=== PATIENT | female | born 1940 | race American Indian/Alaskan Native ===

== ENCOUNTER 2016-08-17 14:59 | Outpatient (CLI) | payer MEDICARE ==
--- NOTE | 2016-08-17 17:40 | Cat Scan Report ---
FINAL REPORT PROCEDURE: CT ABDOMEN WO CON TECHNIQUE: Computerized axial tomography of the abdomen was performed without intravenous contrast. This study is performed without intravascular contrast material and its sensitivity for abdominal and pelvic pathology, including neoplasms, inflammation, abscess, free fluid, thrombosis, arterial dissection and infarction, is reduced compared with a contrast enhanced study. HISTORY: ABDOMINAL PAIN COMPARISON: No prior studies are available for comparison. FINDINGS: Liver and spleen appear normal. There are tiny gallstones without evidence of cholecystitis or biliary ductal dilation. Pancreas appears normal. Adrenal glands and abdominal aorta are normal in size. Small vague hyperdensity is seen in the superior pole of the right kidney that may represent a poorly calcified 5 millimeter stone. Probable benign 3.5 cm cyst is seen in the superior pole of the left kidney. No stones are seen in the visualized portions of the ureters and no hydronephrosis is seen. Normal appendix is seen. Diverticula are seen in the right side of the colon without evidence of diverticulitis. Pelvis is not included on the study. IMPRESSION: Possible 5 millimeter poorly calcified stone is seen in the superior pole of the right kidney without hydronephrosis. Mild cholelithiasis is seen without evidence of cholecystitis.
== END 2016-08-17 15:00 | disposition home or self-care (01) ==
LOC: CT 14:59
PROVIDERS: ATTEND Internal Medicine Cardiovascular Disease
DX: K80.20 Calculus of gallbladder without cholecystitis without obstruction (principal); N28.1 Cyst of kidney, acquired; K57.30 Diverticulosis of large intestine without perforation or abscess without bleeding
CPT/HCPCS: 74150

== ENCOUNTER 2017-05-16 14:56 | Outpatient (CLI) | payer MEDICARE, OTHER | END 2017-05-16 14:57 | disposition home or self-care (01) | LOC: LABHHL 14:56 | PROVIDERS: ATTEND Surgery | DX: C50.911 Malignant neoplasm of unspecified site of right female breast (principal) | CPT/HCPCS: 88305; 88361 ==

== ENCOUNTER 2017-06-09 12:53 | Outpatient (CLI) | payer MEDICARE ==
--- NOTE | 2017-06-09 16:49 | Magnetic Resonance Report ---
BILATERAL BREAST MRI WITHOUT AND WITH CONTRAST: 06/09/17 12:53:00 CLINICAL: Newly diagnosed right breast cancer. COMPARISON:05/15/17 and 05/08/17 right mammograms and 10/21/16 bilateral mammogram.. TECHNIQUE: Axial 1.0-mm T1 without, axial high resolution 2.0-mm T2 and axial 1.0-mm dynamic Vibrant high-resolution postcontrast T1 fat saturation sequences on a 1.5 Jeanie magnet. The examination was performed with an 8 channel dedicated [place] breast coil. Post processing with CAD and subtraction was performed on an [employer] workstation. 20 cc of Multihance was injected without incident for the contrast portion of the exam. Consent was obtained prior to the administration of the contrast. FINDINGS: Right: Moderate background parenchymal enhancement. The known cancer is an irregular shaped mass in the lower outer quadrant 9.2 cm from the nipple and approximately 1 cm from the chest wall. The enhancing portion of the mass measures 2.2 x 1.0 x 2.4 cm and contains a biopsy clip. A nonenhancing slightly more anterior component of the mass measures approximately 1.7 x 1.0 cm. The enhancing portion of the mass demonstrates heterogeneous enhancement with mixed kinetics, 599% peak enhancement and 13% type III washout. No other mass or suspicious enhancement of the right breast. A benign upper outer intraparenchymal lymph node has central fat and measures approximately 1 cm in diameter. It has been mammographically stable over time. A biopsy proven right axillary lymph node metastasis measures 1.8 x 1.5 cm. No other abnormal lymph nodes are identified. Left: Mild background parenchymal enhancement. No mass or suspicious enhancement. No suspicious left axillary or left internal mammary lymph nodes. IMPRESSION: A known right breast cancer measuring at least 2.4 cm maximum dimension. A contiguous nonenhancing mass may be a post biopsy hematoma rather than nonenhancing tumor. Mammographic images are not helpful in better defining the size of the tumor. A single right axillary metastatic lymph node and no other suspicious lymph nodes. Negative left breast. RIGHT BI-RADS 6 -- Known Cancer LEFT BI-RADS 1 -- Negative
== END 2017-06-09 12:54 | disposition home or self-care (01) ==
LOC: SPVWC 12:53
PROVIDERS: ATTEND Surgery
DX: C77.3 Secondary and unspecified malignant neoplasm of axilla and upper limb lymph nodes (principal); C50.411 Malignant neoplasm of upper-outer quadrant of right female breast; I10 Essential (primary) hypertension; I25.10 Atherosclerotic heart disease of native coronary artery without angina pectoris; J44.9 Chronic obstructive pulmonary disease, unspecified; E11.9 Type 2 diabetes mellitus without complications; Z87.891 Personal history of nicotine dependence
CPT/HCPCS: A9577; C8908; 77059

== ENCOUNTER 2017-06-15 10:41 | Outpatient (CLI) | payer MEDICARE ==
--- NOTE | 2017-06-15 16:42 | PET Report ---
PET/CT:06/15/17 10:41:00 CLINICAL: Newly diagnosed right breast cancer. RADIOPHARMACEUTICAL: 14.97mCi F18-FDG. COMPARISON: Bilateral Breast MRI 06/09/17 TECHNIQUE- Following intravenous injection of F-18 FDG and an approximately 60 minute uptake period, CT and PET images from the mid skull to the upper thighs were acquired with the patient in the fasted state. No contrast was administered. The CT protocol used for this PET CT study is designed for attenuation correction and anatomic localization of PET abnormalities. 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 Plasma glucose at the time of this test: 104g/dl. The standardized uptake values (SUV) are normalized to patient body weight and indicate the highest activity concentration (SUV max) in a given disease site. FINDINGS: Brain--Physiologic FDG uptake in the visualized regions of the brain. Neck--Physiologic FDG uptake in mucosal structures. Chest--Physiologic FDG uptake in mediastinal blood pool and myocardium. An oval slightly irregular FDG avid right lower outer breast mass corresponds to the known cancer and measures approximately 2.9 cm maximum width issue the 3.9. Lungs--No abnormal uptake. No pulmonary nodule or mass. Pleura/pericardium--No abnormal uptake. Thoracic nodes--2 FDG avid right axillary lymph nodes. The largest measures 1.9 cm within SUV 4.3 and it correlates with the biopsy proven metastasis. An adjacent 1.0 x 0.9 cm lymph node within SUV 2.3. At least 2 smaller lymph nodes with no FDG uptake. Hepatobiliary--No abnormal uptake. Liver background SUV mean, as a reference for comparing FDG studies, is 3.3 . No liver mass. Spleen--No abnormal uptake. Pancreas--No abnormal uptake. Adrenal Glands--No abnormal uptake. Kidneys/Ureters/Bladder--No abnormal uptake. Abdominopelvic Nodes--No abnormal uptake. Bowel/Peritoneum/Mesentery--No abnormal uptake. Pelvic organs--No abnormal uptake. Bones/Soft Tissues--No abnormal uptake. No bone lesion. IMPRESSION- 1. FDG avid right breast cancer. The CT measurement of 2.9 cm correlates fairly well with an MRI maximum measurement of 2.2 cm.2. 2 FDG avid right axillary lymph nodes. The larger lymph node correlates with a known metastasis and the next largest lymph node is suspicious for a second metastasis. 3. No evidence of pulmonary, hepatic or skeletal metastasis.
== END 2017-06-15 10:42 | disposition home or self-care (01) ==
LOC: PET 10:41
PROVIDERS: ATTEND Internal Medicine Hematology & Oncology
DX: C50.411 Malignant neoplasm of upper-outer quadrant of right female breast (principal); Z79.899 Other long term (current) drug therapy
CPT/HCPCS: 78815; 82962; A9552

== ENCOUNTER 2017-07-04 11:37 | Outpatient (CLI) | payer MEDICARE ==
--- NOTE | 2017-07-04 16:20 | Mammography Report ---
RIGHT DIGITAL DIAGNOSTIC MAMMOGRAM and RIGHT BREAST ULTRASOUND: 07/04/17 11:37:00 CLINICAL: Known right breast cancer at 9 o'clock and new enlargement of the right breast with a new palpable lump at 7 o'clock 3 cm. COMPARISON:05/15/17 right mammogram and ultrasound from [facility] and MRI Breast 06/09/17 FINDINGS: The known cancer is identified far posterior at the nipple line on the MLO view and slightly lateral to the nipple on the CC view and is 7 cm from the nipple on the MLO view. The mass is only partially included on the images. No other mass is identified. No architectural distortion or suspicious calcifications. An upper outer lymph node is stable compared to prior mammograms and have benign features on the recent MRI. Ultrasound of the right breast was performed and demonstrated a solid hypoechoic irregular mass at 8:30 o'clock approximately 6 cm from the nipple correlating with the known cancer. It measures approximately 1.5 x 1.4 cm and contains a biopsy clip. However, anterior extension of the mass is identified and the known cancer together with anterior medial extension measures 2.8 x 1.4 cm. In addition, the right breast has become very firm to touch and is also tender. IMPRESSION: A known right breast cancer at 8:30 to 9 o'clock. The new palpable lump more medial to the nipple and closer to the nipple appears to represent ductal extension of the known cancer toward the nipple. No separate mass is identified. BI-RADS CATEGORY: 6--Known Cancer ACR BI-RADS MAMMOGRAPHIC CODES: 0 = Needs additional imaging evaluation; 1 = Negative; 2 = Benign; 3 = Probably benign; 4 = Suspicious; 5 = Malignant; 6 = Known biopsy-proven malignancy COMMENT: 1. Dense breast tissue, i.e., adenosis, fibrocystic changes, etc., may obscure an underlying neoplasm. 2. Approximately 10% of cancers are not detected with mammography. 3. A negative mammography report should not delay biopsy if a clinically suspicious mass is present. COMMENT: Patient follow-up letters are generated by our [employer] application.
== END 2017-07-04 11:38 | disposition home or self-care (01) ==
LOC: SPVWC 11:37
PROVIDERS: ATTEND Surgery
DX: C50.911 Malignant neoplasm of unspecified site of right female breast (principal); N62 Hypertrophy of breast

== ENCOUNTER 2017-07-05 12:20 | Observation (INO) | payer MEDICARE ==
[2017-07-05] MEDS ORDERED: NACL BACTERIOSTATIC INFILTRATI ONE (13:30)
--- NOTE | 2017-07-05 13:50 | Anesthesia Consultation ---
Anesthesia Consult and Med Hx Date of service: 07/05/17 - Airway Anesthetic Teeth Evaluation: Good ROM Head & Neck: Adequate Mental/Hyoid Distance: Adequate Mallampati Class: Class II Intubation Access Assessment: Probably Good - Pulmonary Exam CTA: Yes - Cardiac Exam Cardiac Exam: RRR - Pre-Operative Health Status ASA Pre-Surgery Classification: ASA3 Proposed Anesthetic Plan: General - Pulmonary Hx Smoking: Yes (QUIT IN 1960) Hx Asthma: No SOB: No COPD: Yes (USES O2 PERIODICALLY) Hx Pneumonia: No Hx Sleep Apnea: Yes - Cardiovascular System Hx Hypertension: Yes (EF 50% cardiac clearance on chart, DX IN THE 'S) Hx Coronary Artery Disease: (hyperlipidemia) Hx Heart Attack/AMI: No Hx Angina: No - Central Nervous System Hx Neuromuscular Disorder: Yes (arthritis) Hx Seizures: No CVA: No Hx Psychiatric Problems: No - Gastrointestinal Hx Gastroesophageal Reflux Disease: Yes - Endocrine Hx Renal Disease: No Hx Non-Insulin Dependent Diabetes: Yes (Diet controlled) Hx Thyroid Disease: No - Hematic Hx Anemia: No Hx Sickle Cell Disease: No - Other Systems Hx Alcohol Use: Yes (WINE/RARELY) Hx Substance Use: No Hx Cancer: Yes Hx Obesity: Yes
[2017-07-05] MEDS ORDERED: DILAUDID IV PRN (13:52)
[2017-07-05] MEDS ORDERED: ZOFRAN IV PRN ×2 (13:52→16:07)
[2017-07-05 13:54] LABS: Basophils % (Auto) 0.6 % (0.0-1.8); Eosinophils # (Auto) 0.1 K/mm3 (0.0-0.4); Eosinophils % (Auto) 1.3 % (0.0-4.3); Hematocrit 37.9 % (30.3-42.9); Hemoglobin 12.4 gm/dl (10.1-14.3); Lymphocytes # (Auto) 1.9 K/mm3 (1.2-5.4); Mean Corpuscular HGB Conc 33 % (30-34); Mean Corpuscular Hemoglobin 27 pg (28-32); Mean Corpuscular Volume 82 fl (79-97); Monocytes # (Auto) 0.9 K/mm3 (0.0-0.8); Platelet Count 271 K/mm3 (140-440); Red Blood Count 4.61 M/mm3 (3.65-5.03)
[2017-07-05] MEDS ORDERED: DECADRON IV NR (14:00)
[2017-07-05 14:07] LABS: BUN/Creatinine Ratio 22; Blood Urea Nitrogen 13 mg/dL (7-17); Hemolysis Index 14; INR 1.08 (0.87-1.13)
[2017-07-05 14:08] LABS: Partial Thromboplastin Time 32.3 Sec. (24.2-36.6)
[2017-07-05] MEDS ORDERED: NACL 0.9% 1000 ML 1,000 ML IV SCH (15:00)
[2017-07-05] MEDS ORDERED: ANCEF/STERILE WATER 2 GM/20 ML IV NR (15:00)
[2017-07-05] MEDS ORDERED: DILAUDID ONE (15:44)
[2017-07-05] MEDS ORDERED: XYLOCAINE MPF 2% ONE (15:44)
[2017-07-05] MEDS ORDERED: ZOFRAN ONE (15:44)
[2017-07-05] MEDS ORDERED: DIPRIVAN 10 MG/ML IV ONE (15:44)
[2017-07-05] MEDS ORDERED: DECADRON ONE (15:44)
[2017-07-05] MEDS ORDERED: PERCOCET 5/325 PO PRN (16:07)
[2017-07-05] MEDS ORDERED: TYLENOL PO PRN (16:07)
[2017-07-05] MEDS ORDERED: REGLAN PO PRN (16:07)
[2017-07-05] MEDS ORDERED: BENADRYL PO PRN (16:07)
[2017-07-05] MEDS ORDERED: SODIUM CHLORIDE FLUSH SYRINGE 10 ML IV PRN (16:07)
--- NOTE | 2017-07-05 16:07 | Short Stay Summary ---
Short Stay Documentation Date of service: 07/05/17 - History H&P: obtained from office - Allergies and Medications Current Medications: Allergies No Known Allergies Allergy (Verified 07/03/17 12:14) Home Medications Medication Instructions Recorded Confirmed Last Taken Type Albuterol Sulfate [Albuterol 0.63% 3 ml INHALATION PRN PRN 08/12/14 07/03/1706/17 History NEBS] Ascorbic Acid [Vitamin C] 2 tab PO DAILY 08/12/14 07/03/17 07/04/17 History Cholecalciferol (Vitamin D3) 1 tab PO DAILY 08/12/14 07/03/17 07/04/17 History [Vitamin D3] Hydrochlorothiazide [HCTZ] 1 cap PO DAILY 08/12/14 07/03/17 07/04/17 History Amlodipine Besylate [Norvasc] 5 mg PO DAILY 07/03/17 07/05/17 07/05/17 11:00 History Colesevelam [Welchol] 3,750 mg PO QDAY 07/03/17 07/03/17 07/04/17 History Fluticasone/Salmeterol [Advair 1 each IH DAILY 07/03/17 07/03/17 07/04/17 History 250-50 Diskus] Losartan [Cozaar] 50 mg PO DAILY 07/03/17 07/05/17 07/05/17 11:00 History Montelukast [Singulair] 10 mg PO QPM 07/03/17 07/03/17 07/04/17 History Pantoprazole [Protonix] 40 mg PO QDAY 07/03/17 07/03/17 07/04/17 History Rivaroxaban [Xarelto] 20 mg PO QDAY 07/03/17 07/05/17 06/30/17 History Tiotropium Morenci [Spiriva] 1 puff IH DAILY 07/03/17 07/03/17 07/04/17 History Active Medications Cefazolin Sodium (Ancef/Sterile Water 2 Gm/20 Ml) 2 gm IV PREOP NR Stop: 07/05/17 23:59 Dexamethasone (Decadron) 4 mg IV PREOP NR Stop: 07/05/17 23:00 Last Admin: 07/05/17 14:28 Dose: 4 mg Hydromorphone HCl (Dilaudid) 0.5 mg IV Q10MIN PRN PRN Reason: Pain , Severe (7-10) Sodium Chloride (Nacl 0.9% 1000 Ml) 1,000 mls @ 42 mls/hr IV DIRECT LESLEY Last Admin: 07/05/17 14:26 Dose: 42 mls/hr Ondansetron HCl (Zofran) 4 mg IV ONCE PRN PRN Reason: Nausea And Vomiting - Brief post op/procedure progress note Date of procedure: 07/05/17 Pre-op diagnosis: Right breast cancer of the upper outer and lower outer quadrants Post-op diagnosis: same Procedure: Right ALND and right partial mastectomy Anesthesia: GETA Findings: Bulky right axilla; palpable right breast mass at the 7:00 position 4 cm from the nipple Surgeon: JUNIE GAUTAM Log Rider: KILEY MORENO Estimated blood loss: minimal Pathology: list (right ALND, right partial mastectomy; right probable intramammar lymph node) Specimen disposition: to lab Condition: stable - Disposition Condition at discharge: Good Disposition: DC/TX-02 SHRT-TRM GEN HOSP IP Short Stay Discharge Plan Activity: other (no heavy lifting) Diet: regular Wound: other (may shower in 48 hours; ELISSA drain care) Follow up with: KIESHA BARRETO III, MD [Primary Care Provider] - 7 Days JUNIE GAUTAM MD [Staff Physician] - 7 Days Prescriptions: HYDROcodone/APAP 5-325 [[place] 5/325] 1 each PO Q6HR PRN #30 tablet PRN Reason: Pain
[2017-07-05] MEDS ORDERED: MORPHINE IV PRN (16:08)
--- NOTE | 2017-07-05 16:26 | Operative Report ---
Operative Report Operative Report: Date of Service: July 05, 2017 Preoperative diagnosis: Right breast cancer of the upper outer quadrant Postoperative diagnosis: Same Procedure: Right partial mastectomy with axillary lymph node dissection Surgeon: Kaia Banda MD Registered Respiratory Therapist: Rossana Powell MD Anesthesia: General Findings: Right breast mass with clip present within radiograph specimen; ALND performed with bulky lymphadenopathy Complications: None EBL: Minimal Disposition: PACU in good condition Indications for operative procedure: This is a 76 year old lady with newly diagnosed Stage II right breast cancer of the upper outer quadrant. Patient with known right axillary positive metastatic lymph nodes. Recommendations were to proceed with surgery given estrogen receptor 100% positive to be followed by possible adjuvant chemotherapy depending patient's status. Patient understood regulation for for agitation therapy. She was seen yesterday in the office for evaluation for new right breast and she noticed when they don't 7 o' clock position 4 cm from nipple. Physical exam findings and ultrasound findings concerning for tumor extension. Option of proceeding with right breast biopsy for further evaluation was discussed and patient did not want to delay her surgery. I discussed my concern to proceeding with breast conservation given concerns for margin status and cosmesis. Patient understood risks and wish to proceed with breast conservation and understood if margins were positive, recommendations would be to return for a total mastectomy. Patient wished to proceed with the procedure. Procedure in detail: Patient was then taken to the operating room. Gen. anesthesia was administered. Right breast was prepped and draped in the normal sterile operative fashion. Known cancer was at the upper outer quadrant at the 9 :00 position and suspicious new area at the 7:00 position 4 cm from the nipple. Palpable known right axillary lymphadenopathy. Timeout was performed. Attention was then taken towards the right axilla. Bulky Right lymphadenopathy was noted. A lazy S axillary incision was made with a 15 blade knife and dissection taken down to the subcutaneous tissues. First began opening of the axillary fascia. The lattismus dorsi muscle was identified and followed superiorly. Then proceeded with identification of the axillary vein followed by identification of the thoracodorsal bundle and long thoracic nerve. Axillary lymph nodes were then removed from the above boundaries with the aid of the bovie cautery and sweeping-like motion and then sent to pathology. Bulky right axillary lymph nodes were noted. Axillary lymph nodes lateral to the thoradorsal bundle noted as well. Both nerves were identified and unharmed. Hemostasis was noted. 19 Irish ELISSA drain was placed and sutured in. Axillary fascia was approximated and closed using interrupted 3-0 Vicryl and skin brought together and closed using a running 4-0 Monocryl followed by skin affix. Attention was then taken towards the right breast. Breast cancer was palpable and ultrasound used to stephanie area of incision. Lateral breast incision was made with a 15 blade knife and dissection taken down to subcutaneous tissues. First began raising of the lateral flap with dissection taken down to the pectoralis muscle, followed by raising of the medial flap, superior flap and inferior flap with all flaps taken down to the pectoralis muscle. The breast area of concern was appropriately removed posteriorly from the pectoralis muscle with the aid of the Bovie cautery. Specimen was marked and then sent to pathology and radiology; radiograph specimen with clip and mass present. Additional area noted on ultrasound at the 10:30 position 7 cm from the nipple was noted, most probable for an intramammary lymph node and was dissected free as well and sent to pathology. Breast cavity was irrigated and hemostasis was obtained. Breast cavity was noted to have a large defect in relationship to the breast. To correct volume loss due to partial mastectomy, proceeded with oncoplastic moblization. The existing deep tissues were then closed using interrupted 3-0 Vicryl, the subcutaneous tissues were closed using interrupted 3-0 Vicryl and the skin brought together using a running 4-0 Monocryl followed by skin affix. She tolerated surgery very well and was awaken from anesthesia without any complication and then transported to PACU in good condition.
[2017-07-05] MEDS ORDERED: LACTATED RINGERS 1,000 ML IV SCH (17:00)
--- NOTE | 2017-07-05 18:22 | Post Anesthesia Evaluation ---
- Post Anesthesia Evaluation Patient Participated: Yes Airway Patent: Yes Stable Respiratory Function: Yes Nausea/Vomiting: No Temp > 96.8F: Yes Pain Manageable: Yes Adequeate Hydration: Yes Anesthesia Complications: No
[2017-07-05] MEDS ORDERED: NACL 0.9% 1000 ML 1,000 ML ONE ×2 (19:22→21:16)
[2017-07-05] MEDS ORDERED: NON-FORMULARY (Albuterol Sulfate [Albuterol 0.63% Nebs] 3 ML) INHALATION PRN (21:37)
[2017-07-05] MEDS ORDERED: SUBLIMAZE IV PRN (21:39)
--- NOTE | 2017-07-05 21:39 | Post Anesthesia Evaluation ---
- Post Anesthesia Evaluation Patient Participated: Yes Airway Patent: Yes Stable Respiratory Function: Yes Nausea/Vomiting: No Temp > 96.8F: Yes Pain Manageable: Yes Adequeate Hydration: Yes Anesthesia Complications: No Block Receding Appropriately: Not Applicable Patient on Ventilator: No
[2017-07-05] MEDS ORDERED: PROVENTIL IH PRN (21:43)
[2017-07-05] MEDS ORDERED: COLACE PO SCH (22:00)
--- NOTE | 2017-07-06 07:48 | XRay Report ---
Operative surgical specimens: 3 tissue specimens are submitted however breast side is not indicated on the specimens. The largest specimen contains 3 surgical clips with a small central calcification. The tissue appears to be multilobulated. A second specimen contains a biopsy clip and a third specimen contains some scattered microcalcifications.
[2017-07-06] MEDS ORDERED: SPIRIVA IH SCH (10:00)
--- NOTE | 2017-07-06 13:13 | Progress Note ---
Assessment and Plan This is a 76 year old lady with Stage II right breast cancer of the upper outer quadrant POD#1 Right ALND and right partial mastectomy. 1. No acute events overnight and pain well controlled. 2. Right breast and axillary incision healing well. 3. ELISSA drain education. 4. OOB to hallway. 5. D/C planning for today. - Patient Problems (1) Breast cancer in female Current Visit: Yes Status: Acute Qualifiers: Breast location: lower outer quadrant of breast Estrogen receptor status: positive Laterality: right Qualified Code(s): C50.511 - Malignant neoplasm of lower-outer quadrant of right female breast; Z17.0 - Estrogen receptor positive status [ER+]; Z17.0 - Estrogen receptor positive status [ER+] Subjective Date of service: 07/06/17 Principal diagnosis: Right breast cancer of the upper outer quadrant Interval history: POD#1 Right partial mastectomy and right ALND Objective - Constitutional Vitals: Vital Signs - 12hr 07/06/17 07/06/17 04:02 07:54 Temperature 99.4 F 98.1 F Pulse Rate 68 83 Respiratory 20 16 Rate Blood Pressure 123/59 Blood Pressure 126/61 123/59 [Left] O2 Sat by Pulse 97 91 Oximetry General appearance: Present: no acute distress - EENT Eyes: PERRL, EOM intact ENT: hearing intact, clear oral mucosa, dentition normal Ears: bilateral: normal - Neck Neck: supple, normal ROM - Respiratory Respiratory effort: normal Respiratory: bilateral: CTA - Breasts Breasts: other (right ALND incision and right breast incision healing well; intact with no signs of infection; no hematoma) - Cardiovascular Rhythm: regular Extremities: no ischemia, pulses intact, pulses symmetrical, No edema, normal temperature, normal color, Full ROM - Gastrointestinal General gastrointestinal: Present: soft, non-tender, non-distended Rectal Exam: deferred - Genitourinary Female genitourinary: deferred - Integumentary Integumentary: clear, warm, dry - Musculoskeletal Musculoskeletal: strength equal bilaterally - Neurologic Neurologic: CNII-XII intact, moves all extremities - Psychiatric Psychiatric: appropriate mood/affect, intact judgment & insight, memory intact, cooperative - Labs CBC & Chem 7: 07/05/17 13:40 07/05/17 13:40 Labs: Abnormal lab results 07/05/17 07/05/17 Range/Units 13:40 13:40 MCH 27 L (28-32) pg [place] % (Auto) 13.0 H (0.0-7.3) % [place] # 0.9 H (0.0-0.8) K/mm3 Carbon Dioxide 31 H (22-30) mmol/L Creatinine 0.6 L (0.7-1.2) mg/dL
[2017-07-06 16:00] VITALS: BP 126/60
== END 2017-07-06 16:30 | disposition short-term general hospital (02) ==
LOC: OR 12:20 → OB 16:07
PROVIDERS: ADMIT Surgery; ATTEND Surgery
DX: C50.411 Malignant neoplasm of upper-outer quadrant of right female breast (principal)
CPT/HCPCS: 19301; 36415; 38530; 76098; 80048; 85025; 85610; 85730; 88305; 88307; 94660; 96374; G0378; J0690; J1100; J1170; J2405; J2704; J7030; J7120

== ENCOUNTER 2017-07-20 06:02 | Day surgery (SDC) | payer MEDICARE ==
[2017-07-20] MEDS ORDERED: NACL BACTERIOSTATIC INFILTRATI ONE (06:44)
[2017-07-20] MEDS ORDERED: ANCEF/STERILE WATER 2 GM/20 ML IV NR (07:00)
[2017-07-20 07:23] LABS: BUN/Creatinine Ratio 14; Blood Urea Nitrogen 10 mg/dL (7-17); Calcium 9.7 mg/dL (8.4-10.2); Hemolysis Index 53
[2017-07-20] MEDS ORDERED: XYLOCAINE MPF 2% ONE (07:23)
[2017-07-20] MEDS ORDERED: DIPRIVAN 10 MG/ML IV ONE (07:23)
[2017-07-20] MEDS ORDERED: DILAUDID ONE (07:23)
[2017-07-20] MEDS ORDERED: HEPARIN 10,000 UNITS/10 ML ONE (07:25)
[2017-07-20] MEDS ORDERED: MARCAINE 0.25% INFILTRATI ONE ×2 (07:25→09:10)
[2017-07-20] MEDS ORDERED: XYLOCAINE 1% 20 mL ONE (07:26)
[2017-07-20] MEDS ORDERED: NACL 0.9% 100 ML ONE (07:26)
--- NOTE | 2017-07-20 07:47 | Anesthesia Day of Surgery ---
Anesthesia Day of Surgery - Day of Surgery Patient Examined: Yes Patient H&P Reviewed: Yes Patient is NPO: Yes
--- NOTE | 2017-07-20 07:47 | Anesthesia Consultation ---
Anesthesia Consult and Med Hx Date of service: 07/20/17 - Airway Anesthetic Teeth Evaluation: Good, Crowns (top front crowns, right molar crown) ROM Head & Neck: Adequate Mental/Hyoid Distance: Adequate Mallampati Class: Class II Intubation Access Assessment: Probably Good - Pulmonary Exam CTA: Yes - Cardiac Exam Cardiac Exam: RRR - Pre-Operative Health Status ASA Pre-Surgery Classification: ASA3 Proposed Anesthetic Plan: General - Pulmonary Hx Smoking: Yes (QUIT IN 1960) Hx Asthma: No SOB: No COPD: Yes Hx Pneumonia: No Hx Sleep Apnea: Yes (+CPAP) - Cardiovascular System Hx Hypertension: Yes (EF 50% ) Hx Coronary Artery Disease: (hyperlipidemia) Hx Heart Attack/AMI: No Hx Angina: No - Central Nervous System Hx Neuromuscular Disorder: No (arthritis) Hx Seizures: No CVA: No Hx Psychiatric Problems: No - Gastrointestinal Hx Gastroesophageal Reflux Disease: Yes - Endocrine Hx Renal Disease: No Hx Non-Insulin Dependent Diabetes: Yes (Diet controlled) Hx Thyroid Disease: No - Hematic Hx Anemia: No Hx Sickle Cell Disease: No - Other Systems Hx Alcohol Use: Yes (WINE/RARELY) Hx Substance Use: No Hx Cancer: Yes (breast) Hx Obesity: Yes - Additional Comments Anesthesia Medical History Comments: on Xarelto 2/2 pulmonary embolism? since 2016. Held since Monday.
[2017-07-20] MEDS ORDERED: ZOFRAN IV PRN (07:50)
[2017-07-20] MEDS ORDERED: SUBLIMAZE IV PRN (07:50)
[2017-07-20] MEDS ORDERED: NORCO 5/325 PO PRN (07:50)
[2017-07-20] MEDS ORDERED: PEPCID IV NR (08:00)
[2017-07-20] MEDS ORDERED: NACL 0.9% 1000 ML 1,000 ML IV SCH (08:00)
[2017-07-20] MEDS ORDERED: ZOFRAN ONE (08:31)
--- NOTE | 2017-07-20 09:08 | Short Stay Summary ---
Short Stay Documentation Date of service: 07/20/17 - History H&P: obtained from office - Allergies and Medications Current Medications: Allergies No Known Allergies Allergy (Verified 07/18/17 13:16) Home Medications Medication Instructions Recorded Confirmed Last Taken Type RX: Albuterol Sulfate [Albuterol 3 ml INHALATION PRN PRN 08/12/14 07/20/1707/19 History 0.63% NEBS] RX: Ascorbic Acid [Vitamin C] 2 tab PO DAILY 08/12/14 07/20/17 07/19/17 History RX: Cholecalciferol (Vitamin D3) 1 tab PO DAILY 08/12/14 07/20/17 07/19/17 History [Vitamin D3] RX: Hydrochlorothiazide [HCTZ] 1 cap PO DAILY 08/12/14 07/20/17 07/19/17 History Amlodipine Besylate [Norvasc] 5 mg PO DAILY 07/03/17 07/20/17 07/20/17 History Colesevelam [Welchol] 3,750 mg PO QDAY 07/03/17 07/20/17 07/19/17 History Fluticasone/Salmeterol [Advair 1 each IH DAILY 07/03/17 07/20/17 07/20/17 History 250-50 Diskus] Montelukast [Singulair] 10 mg PO QPM 07/03/17 07/20/17 07/19/17 History Pantoprazole [Protonix] 40 mg PO QDAY 07/03/17 07/20/17 07/19/17 History RX: Losartan [Cozaar] 50 mg PO DAILY 07/03/17 07/20/17 07/20/17 History Rivaroxaban [Xarelto] 20 mg PO QDAY 07/03/17 07/20/17 07/15/17 History Tiotropium [place] [Spiriva] 1 puff IH DAILY 07/03/17 07/20/17 07/19/17 History HYDROcodone/APAP 5-325 [Parachute 1 each PO Q6HR PRN #30 tablet 07/05/17 07/18/17 Unknown Rx 5/325] Active Medications Acetaminophen/Hydrocodone Bitart (Parachute 5/325) 1 each PO ONCE PRN PRN Reason: Pain, Moderate (4-6) Stop: 07/20/17 12:00 Cefazolin Sodium (Ancef/Sterile Water 2 Gm/20 Ml) 2 gm IV PREOP NR Stop: 07/20/17 23:45 Famotidine (Pepcid) 20 mg IV PREOP NR Stop: 07/20/17 21:00 Last Admin: 07/20/17 07:59 Dose: 20 mg Fentanyl (Sublimaze) 50 mcg IV Q5MIN PRN PRN Reason: Pain , Severe (7-10) Stop: 07/20/17 13:00 Sodium Chloride (Nacl 0.9% 1000 Ml) 1,000 mls @ 75 mls/hr IV DIRECT LESLEY Last Admin: 07/20/17 08:00 Dose: 75 mls/hr Ondansetron HCl (Zofran) 4 mg IV ONCE PRN PRN Reason: Nausea And Vomiting Stop: 07/20/17 12:00 - Brief post op/procedure progress note Date of procedure: 07/20/17 Pre-op diagnosis: Right breast cancer of the upper outer/lower outer quadrant Post-op diagnosis: same Procedure: Right breast margin revision Anesthesia: GETA Findings: Right posterior margin revision Surgeon: JUNIE GAUTAM Estimated blood loss: minimal Pathology: list (right breast posterior margin revision) Specimen disposition: to lab Condition: stable - Disposition Condition at discharge: Good Disposition: DC-01 TO HOME OR SELFCARE Short Stay Discharge Plan Activity: other (no heavy lifting) Diet: regular Wound: other (keep incision clean and dry; may shower in 24 hours; no baths, pools or lakes) Follow up with: KIESHA BARRETO III, MD [Primary Care Provider] - 7 Days JUNIE GAUTAM MD [Staff Physician] - 7 Days
[2017-07-20] MEDS ORDERED: NACL 0.9% IV ONE (09:09)
[2017-07-20] MEDS ORDERED: HEPARIN 10,000 UNITS/10 ML IV ONE (09:10)
[2017-07-20] MEDS ORDERED: XYLOCAINE 1% 20 mL INFILTRATI ONE (09:10)
[2017-07-20] MEDS ORDERED: WATER FOR IRRIG STERILE IR ONE (09:11)
--- NOTE | 2017-07-20 09:12 | Operative Report ---
Operative Report Operative Report: Date: July 20, 2017 Preoperative diagnosis: Right breast cancer of the upper outer/lower outer quadrant with positive posterior margin Postoperative diagnosis: Same Procedure: Right breast margin revision Surgeon: Kaia Banda MD Anesthesia: General Findings: Right breast posterior margin revision Complications: None EBL: Minimal Disposition: PACU in good condition Indications for operative procedure: This is a 76 year old lady with newly diagnosed Stage III right breast cancer of the upper outer quadrant, [id number] ER positive. She recently underwent a right breast partial mastectomy and right ALND with final pathology of posterior breast margin positive for DCIS. Recommendations were to proceed with revision of right posterior breast margin. Patient wished to proceed with the above procedure Procedure in detail: The patient was taken to the operating room. Gen. anesthesia was admission. The right breast was prepped and draped in the normal sterile operative fashion. Timeout was performed. A right axillary drain was present which was removed. Right breast incision was opened. Seroma cavity was encountered and drained. Posterior margin was then revised to include removal of some pectoralis muscle. Specimen was then appropriately marked and sent to pathology. Hemostasis was obtained with the aid of the Bovie cautery. The breast cavity was irrigated and suctioned. Breast cavity was then anesthetized with 1% lidocaine mixed with quarter percent Marcaine. The subcutaneous tissues were approximated and closed using interrupted 3-0 Vicryl and the skin was brought together and closed using a running 4-0 Monocryl followed by skin affix. The drain site was closed placing interrupted 4-0 Monocryl followed by skin affix. She tolerated surgery very well and was awakened from anesthesia without any complications and transported to PACU in good condition.
[2017-07-20 17:10] VITALS: BP 128/66
== END 2017-07-20 11:10 | disposition home or self-care (01) ==
LOC: OR 06:02
PROVIDERS: ATTEND Surgery
DX: C50.411 Malignant neoplasm of upper-outer quadrant of right female breast (principal); C50.511 Malignant neoplasm of lower-outer quadrant of right female breast; I10 Essential (primary) hypertension; J44.9 Chronic obstructive pulmonary disease, unspecified; E78.5 Hyperlipidemia, unspecified; M19.90 Unspecified osteoarthritis, unspecified site; K21.9 Gastro-esophageal reflux disease without esophagitis; E11.9 Type 2 diabetes mellitus without complications; E66.9 Obesity, unspecified; G47.33 Obstructive sleep apnea (adult) (pediatric); Z17.0 Estrogen receptor positive status [ER+]; Z99.89 Dependence on other enabling machines and devices; Z86.711 Personal history of pulmonary embolism; Z79.01 Long term (current) use of anticoagulants; Z68.35 Body mass index [BMI] 35.0-35.9, adult; Z80.3 Family history of malignant neoplasm of breast
CPT/HCPCS: 19301; 36415; 80048; 82962; 88307; C1788; J0690; J1170; J1644; J2405; J2704; J3010; J7030

== ENCOUNTER 2018-07-06 11:48 | Outpatient (CLI) | payer MEDICARE ==
[2018-07-06 12:34] LABS: Blood Urea Nitrogen 14 mg/dL (7-17)
--- NOTE | 2018-07-06 16:20 | Cat Scan Report ---
CT chest and abdomen with contrast: Breast cancer. Following IV and oral contrast transverse images are obtained through the chest, abdomen, and pelvis with coronal and sagittal reformatted 2-D images. There is a left-sided port with the tip at the superior atrial caval junction. Imaging of the right chest wall demonstrates skin thickening of the breast with underlying edema of the tissues. There is a water density collection in the right breast measuring approximately 2.4 x 5.8 cm paralleling the chest wall. Multiple surgical clips are identified in the axilla and there is focal soft tissue density adjacent to a couple of the clips. No underlying rib destructive lytic or blastic lesions noted. There is no hilar or mediastinal adenopathy. The central airways are well-positioned and patent. No filling defects identified in the pulmonary vessels. The thoracic aorta and cardiac chambers are well opacified and unremarkable. No evidence of pulmonary nodule or pleural abnormality. A small area of patchy density identified in the anterior right upper lobe possibly representing atelectasis. The liver, spleen, pancreas, and stomach appear unremarkable. Several small calculi are identified in the gallbladder. No inflammatory changes noted. There is a 3.9 cm exophytic cyst extending laterally from the right kidney and adrenal glands are unremarkable. The partially opacified small bowel is unremarkable. There are numerous diverticula in the proximal colon with no inflammatory changes. There are metal clips along the anterior wall apparently for hernia repair. A small umbilical hernia is noted just below the repair.The abdominal aorta is unremarkable for age. Severely degenerative L5-S1. No mets noted. Impression: 1. Changes from breast surgery/radiation therapy of the right breast. 2. Small focal area of atelectasis right upper lobe. 3. Gallstones. 4. No metastases identified.
--- NOTE | 2018-07-06 16:54 | Cat Scan Report ---
FINAL REPORT EXAM: CT ABDOMEN PELVIS W CON HISTORY: BREAST CANCER TECHNIQUE: CT of Chest, Abdomen, and Pelvis with IV contrast. Sagittal and coronal reconstructed jessica ging provided for the chest. Coronal reconstructed imaging available for the abdomen. PRIORS: CT abdomen August 17, 2016. FINDINGS: CHEST: Moderate emphysema. Ground-glass infiltrate or ill-defined scarring anterior right upper lobe series 2:38 measures approximately 19 x 7 mm in size. No pneumothorax. No large consolidation. No effusion. No endobronchial lesions. Main pulmonary arteries are unremarkable. No aortic aneurysm. No dissection. Mild aortic atherosclerotic disease. Major branch arteries are pat ent. Heart size unremarkable. No pericardial effusion. Right axillary surgical clips identified. No significant adenopathy. There is no hilar or mediastinal mass or adenopathy. Right port catheter tip is in the SVC. Right breast fluid collection demonstrates irregular wall with rim enhancement measuring 2.5 x 7.3 cm on series 2:66. Appearance is nonspecific. Nearby stranding of the subcutaneous fat and wall thicken ing of the overlying skin noted. ABDOMEN: Gallbladder: Distended. Gallstones. No wall thickening. Common bile duct does not appear prominent. Kidneys: Symmetrical cortical enhancement. Simple appearing nonenhancing low-density lesion in the up per left renal cortex measures 3.8 cm. Nearby smaller lesion measures 0.4 cm. Subcentimeter lesion is too small to accurately characterize but statistically probably represent cysts. No hydronephrosis. No suspicious enhancing lesions. Liver, spleen, gallbladder, pancreas, and adrenals are unremarkable. IVC is unremarkable. Eucx-ng-erkiziwk aortic atherosclerotic disease. No aneurysm. No dissection. No periaortic or retroperitoneal mass or adenopathy. Jqbb-am-cfzywjjp stool throughout the colon. Mild diverticulosis. No wall thickening or inflammatory changes. Terminal ileum is unremarkable. Appendix is normal. Small bowel loops are unremarkable. No obstruction. No air-fluid levels. Patient is status post ventral hernia repair. Small fat containing umbilical hernia. No strangulation. Mesentery is unremarkable. No adenopathy or lesions. No free air. No free fluid. PELVIS: Bladder is unremarkable. There is no pelvic mass or adenopathy. Fat containing right inguinal hernia. No strangulation. Left inguinal region is unremarkable. Bones: No suspicious osseous lesions on this limited examination of the skeleton. Metastatic disease better evaluated with bone scan. Degenerative changes are in the spine. IMPRESSION: Right breast irregular fluid collection with mild rim enhancement. Nearby cyst subcutaneous stranding and overlying skin thickening. Findings may represent postsurgical seroma, hematoma, or developing a bscess. Moderate emphysema. Nonspecific ground-glass infiltrate in the right upper lobe. Short-term, three-month, interval follow -up to document resolution or stability is recommended. Biopsy and PET-CT scan are other consideratio ns. Distended gallbladder with gallstones. No CT evidence for cholecystitis. Simple appearing left renal cyst. Nearby probable subcentimeter cyst. No acute bowel findings.
== END 2018-07-06 11:49 | disposition home or self-care (01) ==
LOC: CT 11:48
PROVIDERS: ATTEND Internal Medicine Hematology & Oncology
DX: K80.80 Other cholelithiasis without obstruction (principal); N28.1 Cyst of kidney, acquired; J43.8 Other emphysema; M47.816 Spondylosis without myelopathy or radiculopathy, lumbar region; K40.90 Unilateral inguinal hernia, without obstruction or gangrene, not specified as recurrent; I70.0 Atherosclerosis of aorta; J98.11 Atelectasis; C50.411 Malignant neoplasm of upper-outer quadrant of right female breast
CPT/HCPCS: 36415; 71260; 74177; 82565; 84520; Q9967

== ENCOUNTER 2018-07-26 10:14 | Outpatient (CLI) | payer MEDICARE ==
--- NOTE | 2018-07-30 11:48 | Magnetic Resonance Report ---
BILATERAL BREAST MRI WITHOUT AND WITH CONTRAST: 07/26/18 10:14:00 CLINICAL: Breast cancer survivor status post right partial mastectomy in 2018. She had a revision of margins on 07/20/17 with no further cancer noted by pathology. COMPARISON:06/09/17. TECHNIQUE: Axial 1.0-mm T1 without, axial high resolution 2.0-mm T2 and axial 1.0-mm dynamic Vibrant high-resolution postcontrast T1 fat saturation sequences on a 1.5 Jeanie magnet. The examination was performed with an 8 channel dedicated [employer]in[employer] breast coil. Post processing with CAD and subtraction was performed on an [employer] workstation. 18.0 cc of Multihance was injected for the contrast portion of the exam. Consent was obtained prior to the administration of the contrast. FINDINGS: Right: Minimal background parenchymal enhancement. No mass or suspicious enhancement. A lower outer postop seroma measures 5.1 x 2.2 x 3.6 cm. Moderate skin thickening of the breast measures 6 mm maximum. No enhancement of the skin. No suspicious lymph nodes. Left: Minimal background parenchymal enhancement. No mass or suspicious enhancement. No suspicious lymph nodes. IMPRESSION: Status post right partial mastectomy with a 5 cm residual postop seroma. No evidence of disease recurrence. Negative left breast. BI-RADS 2 - - Benign
== END 2018-07-26 10:15 | disposition home or self-care (01) ==
LOC: SPVIMAG 10:14
PROVIDERS: ATTEND Surgery
DX: C50.411 Malignant neoplasm of upper-outer quadrant of right female breast (principal); I10 Essential (primary) hypertension; J44.9 Chronic obstructive pulmonary disease, unspecified; K21.9 Gastro-esophageal reflux disease without esophagitis; E66.9 Obesity, unspecified; M19.90 Unspecified osteoarthritis, unspecified site; E11.9 Type 2 diabetes mellitus without complications; Z90.710 Acquired absence of both cervix and uterus; Z87.891 Personal history of nicotine dependence
CPT/HCPCS: A9577; C8908; 77049

== ENCOUNTER 2018-10-18 08:26 | Outpatient (CLI) | payer MEDICARE ==
--- NOTE | 2018-10-19 07:44 | PET Report ---
PET SB TO MT SUBSEQUENT: HISTORY: Restaging of right breast cancer. TECHNIQUE: 12.7 millicuries F-18 FDG was administered intravenously. Noncontrast CT images and PET images were obtained from the skull base to the proximal thighs. Fused images were reviewed on a workstation. The patient's blood glucose level measured 98. COMPARISON: 06/15/17. FINDINGS: BRAIN: physiologic FDG uptake in the imaged brain. NECK: physiologic FDG uptake. CHEST: The previously described 2.9 cm right breast mass has been surgically resected. There is a 5.2 x 2.7 cm fluid collection in this area on today's exam suggestive of a seroma. The previously described right axillary lymph nodes have also been resected or resolved. No residual suspicious mass or lymph nodes. No abnormal radiotracer activity. MEDIASTINUM: physiologic FDG uptake. LUNGS: physiologic FDG uptake. PLEURA/PERICARDIUM: physiologic FDG uptake. THORACIC LYMPH NODES: physiologic FDG uptake. HEPATOBILIARY: physiologic FDG uptake. Mean liver SUV measures 5.8 which has increased from 3.3 on the previous exam. No suspicious liver mass or infiltrative changes are appreciated. Cholelithiasis is unchanged. PANCREAS: physiologic FDG uptake. SPLEEN: physiologic FDG uptake. ADRENAL GLANDS: physiologic FDG uptake. KIDNEYS/RENAL COLLECTING SYSTEMS: physiologic FDG uptake. 4 cm left renal cyst is stable. BOWEL/MESENTERY: physiologic FDG uptake. PELVIC VISCERA: physiologic FDG uptake. ABDOMINAL/PELVIC LYMPH NODES: physiologic FDG uptake. MUSCULOSKELETAL: physiologic FDG uptake. Ventral wall repair changes are noted and intact. IMPRESSION: Negative PET/CT. No evidence for disease recurrence or metastasis.
== END 2018-10-18 08:27 | disposition home or self-care (01) ==
LOC: PET 08:26
PROVIDERS: ATTEND Internal Medicine Hematology & Oncology
DX: C50.411 Malignant neoplasm of upper-outer quadrant of right female breast (principal); I10 Essential (primary) hypertension; J44.9 Chronic obstructive pulmonary disease, unspecified; K21.9 Gastro-esophageal reflux disease without esophagitis; E11.9 Type 2 diabetes mellitus without complications; Z90.710 Acquired absence of both cervix and uterus
CPT/HCPCS: 78815; 82962; A9552

== ENCOUNTER 2018-11-21 05:47 | Day surgery (SDC) | payer MEDICARE, OTHER ==
[~2018-11-21 05:47] MED LIST: ANCEF/STERILE WATER 2 GM/20 ML 2 GM/20 ML SYRINGE IV NR; WATER FOR IRRIG STERILE IR ONE
[2018-11-21] MEDS ORDERED: VERSED IV NR (09:07)
[2018-11-21] MEDS ORDERED: LACTATED RINGERS 1,000 ML IV SCH (09:07)
[2018-11-21] MEDS ORDERED: SUBLIMAZE IV PRN (09:13)
--- NOTE | 2018-11-21 09:13 | Anesthesia Day of Surgery ---
Anesthesia Day of Surgery - Day of Surgery Patient Examined: Yes Patient H&P Reviewed: Yes Patient is NPO: Yes
--- NOTE | 2018-11-21 09:13 | Anesthesia Consultation ---
Anesthesia Consult and Med Hx Date of service: 11/21/18 - Airway Anesthetic Teeth Evaluation: Poor (loose right lower canine) ROM Head & Neck: Adequate Mental/Hyoid Distance: Adequate Mallampati Class: Class III Intubation Access Assessment: Possibly Difficult - Pulmonary Exam CTA: Yes - Cardiac Exam Cardiac Exam: RRR - Pre-Operative Health Status ASA Pre-Surgery Classification: ASA3 Proposed Anesthetic Plan: General, MAC - Pre-Anesthesia Comment Pre-Anesthesia Comments: GA vs MAC pending discussion with surgeon regard extent of planned prrocedure. - Pulmonary Hx Smoking: Yes (QUIT IN 1960) SOB: No COPD: Yes (chornic cough) Home Oxygen Therapy: No (supplemental O2 with CPAP; no other home O2) Hx Sleep Apnea: Yes - Cardiovascular System Hx Hypertension: Yes (no antihypertensives today) Hx Heart Attack/AMI: No Hx Cardia Arrhythmia: No - Central Nervous System Hx Neuromuscular Disorder: No (arthritis) CVA: No Hx Psychiatric Problems: No - Gastrointestinal Hx Gastroesophageal Reflux Disease: Yes (controlled) - Endocrine Hx Renal Disease: No Hx Liver Disease: No Hx Non-Insulin Dependent Diabetes: Yes (Diet controlled) Hx Thyroid Disease: No - Other Systems Hx Alcohol Use: Yes (WINE/RARELY) Hx Substance Use: No Hx Cancer: Yes (hx breast Ca) Hx Obesity: Yes - Additional Comments Anesthesia Medical History Comments: Hx xarelto for PE in 2014; held since 11/17.
[2018-11-21] MEDS ORDERED: MARCAINE 0.25% INFILTRATI ONE ×3 (10:57→11:21)
[2018-11-21] MEDS ORDERED: XYLOCAINE 1% 20 mL ONE (10:57)
[2018-11-21] MEDS ORDERED: VERSED ONE (11:07)
[2018-11-21] MEDS ORDERED: XYLOCAINE CARDIAC IV ONE (11:09)
[2018-11-21] MEDS ORDERED: DIPRIVAN 10 MG/ML IV ONE (11:09)
[2018-11-21] MEDS ORDERED: DILAUDID ONE (11:15)
[2018-11-21] MEDS ORDERED: XYLOCAINE 1% 20 mL INFILTRATI ONE ×2 (11:21)
[2018-11-21] MEDS ORDERED: WATER FOR IRRIG STERILE IR ONE (11:47)
--- NOTE | 2018-11-21 11:57 | Operative Report ---
Operative Report Operative Report: Operative Report: Date of Service: November 21, 2017 Properative diagnosis: Left port with central venous access not indicated Postoperative diagnosis: Same Procedure: Left port removal Surgeon: Kaia Banda MD Anesthesia: Local MAC Findings: Removal of left port in its entirety Complications: None Drain: None Disposition: PACU in good condition Indications for operative procedure: This is a 78-year-old lady with a personal history of right breast cancer. Patient has completed adjuvant chemotherapy and central venous access no longer indicated. Patient wished to proceed with port removal. Procedure in detail: Patient was taken to the operating procedure room. She was laid supine. Local MAC anesthesia was administered. The port was identified of the left chest. The left chest was prepped and draped in the normal sterile operative fashion. The skin was anesthetized with 1% lidocaine mix with quarter percent Marcaine. The prior port incision was opened with a 15 blade knife and taken down to the subcutaneous tissues. The port was encountered. The catheter was encountered and was appropriately dissected free and removed in its entirety. Then proceed with port removal with dissection of scar tissue around the port. The port was removed in its entirety without any complications. Hemostasis was obtained. The subcutanoeus tisses were brought together and closed with interrupted 3-0 Vicryl followed by closing of the skin with a running 4-0 Monocryl. She tolerated the procedure very well and was transferred to PACU in good condition.
--- NOTE | 2018-11-21 12:00 | Short Stay Summary ---
Short Stay Documentation Date of service: 11/21/18 - History H&P: obtained from office - Allergies and Medications Current Medications: Allergies No Known Allergies Allergy (Verified 11/19/18 17:36) Home Medications Medication Instructions Recorded Confirmed Last Taken Type Albuterol Sulfate [Albuterol 0.63% 3 ml INHALATION PRN PRN 08/12/14 11/21/18 6 Months Ago History NEBS] ~05/23/18 Ascorbic Acid [Vitamin C] 2 tab PO DAILY 08/12/14 11/19/18 11/20/18 History Cholecalciferol (Vitamin D3) 1 tab PO DAILY 08/12/14 11/19/18 11/20/18 History [Vitamin D3] Colesevelam [Welchol] 3,750 mg PO QDAY 07/03/17 11/19/18 11/20/18 History Fluticasone/Salmeterol [Advair 1 each IH DAILY PRN 07/03/17 11/19/18 11/20/18 History 250-50 Diskus] Montelukast [Singulair] 10 mg PO QPM 07/03/17 11/19/18 11/20/18 History Rivaroxaban [Xarelto] 20 mg PO QDAY 07/03/17 11/21/18 11/18/18 History Tiotropium [place] [Spiriva] 1 puff IH DAILY 07/03/17 11/21/18 11/21/18 04:15 History Anastrozole [Arimidex] 1 mg PO DAILY 11/19/18 11/19/18 11/20/18 History Cyanocobalamin (Vitamin B-12) 1,000 mcg SL DAILY 11/19/18 11/19/18 11/20/18 History [Vitamin B-12] Gabapentin [Neurontin] 100 mg PO Q8HR 11/19/18 11/21/18 11/20/18 History Triamter/Hctz 37.5-25 mg 1 tab PO QDAY 11/19/18 11/21/18 11/20/18 History [Maxzide-25] metFORMIN [Glucophage] 500 mg PO QDAY 11/19/18 11/19/18 11/20/18 History Active Medications Fentanyl (Sublimaze) 50 mcg IV Q5MIN PRN PRN Reason: Pain , Severe (7-10) Stop: 11/21/18 20:00 Cefazolin Sodium (Ancef/Sterile Water 2 Gm/20 Ml) 2 gm in 20 mls @ 80 mls/hr IV PREOP NR; Protocol Stop: 11/21/18 19:00 Lactated Ringer's (Lactated Ringers) 1,000 mls @ 100 mls/hr IV DIRECT LESLEY Last Admin: 11/21/18 09:30 Dose: 100 mls/hr Documented by: Midazolam HCl (Versed) 2 mg IV ONCE NR Stop: 11/21/18 20:00 Last Admin: 11/21/18 09:32 Dose: 2 mg Documented by: - Brief post op/procedure progress note Date of procedure: 11/21/18 Pre-op diagnosis: Left port with central venous access not indicated Post-op diagnosis: same Procedure: Left port removal Anesthesia: MAC Findings: Left port removal Surgeon: JUNIE GAUTAM Estimated blood loss: minimal Pathology: list Specimen disposition: to lab (port removal), discarded Condition: stable - Disposition Condition at discharge: Good Disposition: DC-01 TO HOME OR SELFCARE Short Stay Discharge Plan Activity: other (no heavy lifting) Diet: regular Wound: keep clean and dry (remove dressing in 48 hours and then may shower) Follow up with: KIESHA BARRETO III, MD [Primary Care Provider] - 7 Days JUNIE GAUTAM MD [Staff Physician] - 7 Days
[2018-11-21 12:50] VITALS: BP 128/75
== END 2018-11-21 13:15 | disposition home or self-care (01) ==
LOC: OR 05:47
PROVIDERS: ATTEND Surgery
DX: Z45.2 Encounter for adjustment and management of vascular access device (principal); I25.10 Atherosclerotic heart disease of native coronary artery without angina pectoris; E78.00 Pure hypercholesterolemia, unspecified; I10 Essential (primary) hypertension; J44.9 Chronic obstructive pulmonary disease, unspecified; E66.9 Obesity, unspecified; K21.9 Gastro-esophageal reflux disease without esophagitis; G47.30 Sleep apnea, unspecified; M19.90 Unspecified osteoarthritis, unspecified site; E11.9 Type 2 diabetes mellitus without complications; Z72.89 Other problems related to lifestyle; Z85.3 Personal history of malignant neoplasm of breast; Z79.899 Other long term (current) drug therapy; Z79.84 Long term (current) use of oral hypoglycemic drugs; Z87.891 Personal history of nicotine dependence; Z85.038 Personal history of other malignant neoplasm of large intestine; Z98.49 Cataract extraction status, unspecified eye; Z68.34 Body mass index [BMI] 34.0-34.9, adult; Z86.711 Personal history of pulmonary embolism; Z90.11 Acquired absence of right breast and nipple; Z90.710 Acquired absence of both cervix and uterus; Z80.8 Family history of malignant neoplasm of other organs or systems; Z98.890 Other specified postprocedural states
CPT/HCPCS: 36415; 36590; 82962; 84132; 88302; J0690; J1170; J2001; J2250; J2704; J7120; 88300

== ENCOUNTER 2019-02-08 08:36 | Outpatient (CLI) | payer MEDICARE, OTHER | END 2019-02-08 08:37 | disposition home or self-care (01) | LOC: LABHHL 08:36 | PROVIDERS: ATTEND Surgery | DX: N63.11 Unspecified lump in the right breast, upper outer quadrant (principal); I10 Essential (primary) hypertension; E78.00 Pure hypercholesterolemia, unspecified; K21.9 Gastro-esophageal reflux disease without esophagitis; J44.9 Chronic obstructive pulmonary disease, unspecified | CPT/HCPCS: 88305; 88342 ==

== ENCOUNTER 2019-03-06 12:39 | Outpatient (CLI) | payer MEDICARE ==
--- NOTE | 2019-03-06 14:06 | Ultrasound Report ---
ULTRASOUND-GUIDED NEEDLE CORE BIOPSY RIGHT BREAST WITH CLIP PLACEMENT CLINICAL: A palpable right breast lump at 10:00 11 cm from the nipple. FINDINGS: The procedure was explained to the patient and informed consent was obtained. Ultrasound demonstrated the previously identified mass or lymph node.. I marked the breast with a felt tip marker and a timeout was called. The skin was prepped with Chloro -Prep and anesthetized with 1% lidocaine. Needle core biopsy was performed through small dermatotomy using ultrasound guidance, 2% lidocaine wi th epinephrine for deep anesthesia and a 14-gauge Achieve biopsy device. 3 cores were obtained and pl aced in formalin. A clip was deployed within the lesion and a second clip was deployed slightly outsi de the lesion. The patient tolerated the procedure well and there were no apparent complications. Hemostasis was ach ieved with minimal effort and a sterile dressing was applied. A post procedure mammogram demonstrated concordant clip deployment. However, no mammographic density is identified. She left the department in good condition and was given instructions for wound care an d follow-up. IMPRESSION: Uncomplicated ultrasound guided needle core biopsy with clip placement right breast. Signer Name: Chiki Cash MD Signed: 03/06/2019 2:02 PM Workstation Name: [id number]
--- NOTE | 2019-03-07 10:38 | Mammography Report ---
RIGHT DIGITAL DIAGNOSTIC MAMMOGRAM CLINICAL: For clip placement after ultrasound-guided needle biopsy. COMPARISON: 01/21/2019 and 02/07/2019 mammograms FINDINGS: 2 biopsy clips are identified within an oval low-density circumscribed nodule which correla mily with the previously identified palpable lymph node or mass. In the ultrasound report, I state dawood t there is no mammographic density but after further review, there is a distinct low density nodule a t the clips. IMPRESSION: Concordant clip deployment. Signer Name: Chiki Cash MD Signed: 03/07/2019 10:33 AM Workstation Name: [id number]
== END 2019-03-06 12:40 | disposition home or self-care (01) ==
LOC: SPVWC 12:39
PROVIDERS: ATTEND Surgery
DX: N63.11 Unspecified lump in the right breast, upper outer quadrant (principal); C50.411 Malignant neoplasm of upper-outer quadrant of right female breast; I25.10 Atherosclerotic heart disease of native coronary artery without angina pectoris; E78.00 Pure hypercholesterolemia, unspecified; I10 Essential (primary) hypertension; J44.9 Chronic obstructive pulmonary disease, unspecified; G47.30 Sleep apnea, unspecified; K21.9 Gastro-esophageal reflux disease without esophagitis; E66.9 Obesity, unspecified; E11.9 Type 2 diabetes mellitus without complications; M19.90 Unspecified osteoarthritis, unspecified site; Z72.89 Other problems related to lifestyle; Z79.899 Other long term (current) drug therapy; Z79.84 Long term (current) use of oral hypoglycemic drugs; Z87.891 Personal history of nicotine dependence; Z85.038 Personal history of other malignant neoplasm of large intestine; Z98.49 Cataract extraction status, unspecified eye; Z90.11 Acquired absence of right breast and nipple; Z98.890 Other specified postprocedural states; Z80.8 Family history of malignant neoplasm of other organs or systems; Z86.711 Personal history of pulmonary embolism
CPT/HCPCS: 88305; 88341; 88342; 88368

== ENCOUNTER 2019-03-08 10:31 | Outpatient (CLI) | payer MEDICARE ==
[2019-03-08 11:31] LABS: Blood Urea Nitrogen 15 mg/dL (7-17)
--- NOTE | 2019-03-08 15:19 | Cat Scan Report ---
CT CHEST WITHOUT CONTRAST INDICATION / CLINICAL INFORMATION: C50.411 malignant neoplasm of the upper outer quadrant of the rig ht female breast TECHNIQUE: Axial CT images were obtained through the chest without contrast. Sagittal and coronal reformatted im ages. All CT scans at this location are performed using CT dose reduction for ALARA by means of autom ated exposure control. COMPARISON: 07/06/2018 FINDINGS: HEART: No significant abnormality. THORACIC AORTA: No significant abnormality. MEDIASTINUM and ALICIA: No significant abnormality. LUNGS: No acute air space or interstitial disease. Mild emphysematous changes are noted in the upper lung zones. No pulmonary nodule or mass. PLEURA: No significant pleural effusion. No pneumothorax. SKELETAL SYSTEM: No significant abnormality. ADDITIONAL FINDINGS: Right mastectomy changes are again noted. 6.0 x 1.7 cm seroma in the right breas t soft tissues appears slightly decreased in size. IMPRESSION: No evidence for recurrent or metastatic disease in the chest. Signer Name: Salvador Mejia Jr, MD Signed: 03/08/2019 3:15 PM Workstation Name: [id number]
--- NOTE | 2019-03-08 15:24 | Cat Scan Report ---
CT ABDOMEN AND PELVIS WITHOUT CONTRAST HISTORY: C50.411)Malignant neoplasm of upper-outer quadrant of right female breast COMPARISON: 07/06/2018 TECHNIQUE: Axial CT images were obtained through the abdomen and pelvis without IV contrast. Sagittal and coronal reformatted images. All CT scans at this location are performed using CT dose reduction for ALARA by means of automated exposure control. FINDINGS: CT ABDOMEN: Liver: Numerous hypodense liver lesions have developed throughout the liver measuring up to 3 cm in d iameter. Biliary: Few calcified gallstones in the fundus of the gallbladder measuring up to 5 mm. No biliary d ilatation or inflammation. Spleen: No significant abnormality. Unenlarged. Pancreas: No significant abnormality. Adrenals: No significant abnormality. Kidneys: 3.6 cm exophytic cyst from the superior left kidney is unchanged. The kidneys and collecting systems are unremarkable otherwise. Lymphatics: No lymphadenopathy. Vasculature: No significant abnormality. Bowel/Peritoneum: There are scattered diverticula in the cecum. No evidence for bowel obstruction or focal inflammation. Normal appendix. CT PELVIS: : Hysterectomy changes are suspected. No adnexal cyst or mass. The bladder is unremarkable. Osseous Structures: Mild lumbar spondylosis. No suspicious bony lesion is identified. Additional Findings: Previous ventral wall hernia repair changes are identified. There is a small rec urrent hernia along the inferior border of the repair containing a short segment of small bowel. No e vidence for bowel obstruction. IMPRESSION: Multiple new hypodense liver lesions are identified consistent with metastatic disease. Cholelithiasis. Left renal cyst, stable. Diverticulosis of the cecum. Small ventral wall hernia as described above. Signer Name: Salvador Mejia Jr, MD Signed: 03/08/2019 3:20 PM Workstation Name: [id number]
== END 2019-03-08 10:32 | disposition home or self-care (01) ==
LOC: CT 10:31
PROVIDERS: ATTEND Internal Medicine Hematology & Oncology
DX: C50.411 Malignant neoplasm of upper-outer quadrant of right female breast (principal)
CPT/HCPCS: 36415; 71250; 74176; 82565; 84520

== ENCOUNTER 2019-03-19 08:24 | Day surgery (SDC) | payer MEDICARE ==
[2019-03-19 09:43] LABS: Hematocrit 36.7 % (30.3-42.9); Hemoglobin 11.6 gm/dl (10.1-14.3); Mean Corpuscular HGB Conc 32 % (30-34); Mean Corpuscular Volume 87 fl (79-97); Platelet Count 247 K/mm3 (140-440); Red Blood Count 4.23 M/mm3 (3.65-5.03); Red Cell Distribution Width 14.6 % (13.2-15.2)
[2019-03-19 10:03] LABS: INR 1.17 (0.87-1.13)
[2019-03-19 10:04] LABS: Partial Thromboplastin Time 29.9 Sec. (24.2-36.6)
[2019-03-19] MEDS ORDERED: ZOFRAN IV ONE (10:04)
[2019-03-19] MEDS ORDERED: DILAUDID IV ONE ×2 (10:04→11:15)
[2019-03-19] MEDS ORDERED: NACL 0.9% 500 ML 500 ML IV SCH (11:00)
--- NOTE | 2019-03-19 13:24 | Cat Scan Report ---
CT-GUIDED LIVER BIOPSY INDICATION : Malignant neoplasm of rt female breast. Multiple new liver masses. COMPARISON: CT chest abdomen and pelvis performed 03/08/2019. PROCEDURE: The risks (including but not limited to bleeding and infection) and benefits were explain ed to the patient and informed consent was obtained. All CT scans at this location are performed usi ng CT dose reduction for ALARA by means of automated exposure control. A time out procedure was performed. The procedure site was prepped and draped in the usual sterile f ashion and lidocaine was used for local anesthesia. Anxiolysis was accomplished with IV Dilaudid and Zofran. Using CT guidance, a 19-gauge introducer needle was advanced to the central portions of an approximat e 3.5 cm hypodense liver lesion in the anterior right hepatic lobe. 3 separate 2.2 cm 20-gauge core b iopsies were obtained. Pathology was present and deemed the samples adequate. Follow-up scan demonstr ates no evidence for postbiopsy hemorrhage. The patient tolerated the procedure well with no complications. IMPRESSION: Successful CT-guided biopsy of a right hepatic lobe mass. Signer Name: Salvador Mejia Jr, MD Signed: 03/19/2019 1:19 PM Workstation Name: [id number]
[2019-03-19 14:20] VITALS: BP 116/52
== END 2019-03-19 16:15 | disposition home or self-care (01) ==
LOC: CATHLABREC 08:24 → EDSTATUS 08:30 → CATHLABREC 16:15
PROVIDERS: ATTEND Internal Medicine Hematology & Oncology
DX: K76.89 Other specified diseases of liver (principal); C78.7 Secondary malignant neoplasm of liver and intrahepatic bile duct; C50.411 Malignant neoplasm of upper-outer quadrant of right female breast; I25.10 Atherosclerotic heart disease of native coronary artery without angina pectoris; E78.00 Pure hypercholesterolemia, unspecified; E11.9 Type 2 diabetes mellitus without complications; I10 Essential (primary) hypertension; J44.9 Chronic obstructive pulmonary disease, unspecified; G47.30 Sleep apnea, unspecified; K21.9 Gastro-esophageal reflux disease without esophagitis; E66.9 Obesity, unspecified; M19.90 Unspecified osteoarthritis, unspecified site; Z79.899 Other long term (current) drug therapy; Z79.84 Long term (current) use of oral hypoglycemic drugs; Z85.038 Personal history of other malignant neoplasm of large intestine; Z98.49 Cataract extraction status, unspecified eye; Z68.31 Body mass index [BMI] 31.0-31.9, adult; Z90.11 Acquired absence of right breast and nipple; Z72.89 Other problems related to lifestyle; Z80.8 Family history of malignant neoplasm of other organs or systems; Z98.890 Other specified postprocedural states
CPT/HCPCS: 36415; 47000; 77012; 85027; 85610; 85730; 88172; 88173; 88307; 88333; 88342; 96374; 96375; J1170; J2405; 88341; J7040

== ENCOUNTER 2019-03-20 16:09 | Outpatient (CLI) | payer MEDICARE ==
[~2019-03-20 16:09] MED LIST changes: -ANCEF/STERILE WATER 2 GM/20 ML 2 GM/20 ML SYRINGE IV NR; +DILAUDID ONE; -WATER FOR IRRIG STERILE IR ONE
--- NOTE | 2019-03-20 20:18 | Magnetic Resonance Report ---
MRI BRAIN with and without IV contrast. INDICATION / CLINICAL INFORMATION: C50.411 MALIGNANT OF UPPER QUAD OF RT BREAST. TECHNIQUE: Multiplanar, multisequence MR images of the brain were obtained. COMPARISON: None available. FINDINGS: BRAIN / INTRACRANIAL CONTENTS: The brain parenchyma demonstrate appropriate signal catheter 6 for age . The diffusion imaging reveals no evidence of acute infarction. This mild cerebral atrophy, also con cordant with age. The ventricular system is correspondingly appropriate in size and configuration. No extra-axial fluid collections or significant mass effect is identified at. No definitive intracrania l enhancing lesions are appreciated at. CRANIOCERVICAL JUNCTION: No significant abnormality. VASCULAR FLOW-VOIDS: No significant abnormality. ORBITS: No significant abnormality of visualized orbits. SINUSES / MASTOIDS: No significant abnormality of the visualized paranasal sinuses or mastoid air kirk ls. ADDITIONAL FINDINGS: None. IMPRESSION: 1. The MRI the brain is unremarkable for age without evidence of recent infarction. Signer Name: Daron Coto MD Signed: 03/20/2019 8:13 PM Workstation Name: [id number]
== END 2019-03-20 16:10 | disposition home or self-care (01) ==
LOC: MRI 16:09
PROVIDERS: ATTEND Internal Medicine Hematology & Oncology
DX: C50.411 Malignant neoplasm of upper-outer quadrant of right female breast (principal)
CPT/HCPCS: 70553; A9577; J1170

== ENCOUNTER 2019-05-16 08:11 | Outpatient (CLI) | payer MEDICARE ==
--- NOTE | 2019-05-16 12:09 | PET Report ---
. PET/CT HISTORY: C50.411. Restaging of right breast cancer TECHNIQUE: The patient's fasting blood glucose was 102. The patient weighed 171 lbs. The patient w as injected with 13.9 mCi of FDG in the left antecubital fossa at 0913 hours and imaging was started at 0958 hours. The patient was imaged from the skull base to the thighs. All CT scans at this locati on are performed using CT dose reduction for ALARA by means of automated exposure control. Images wer e reviewed on a workstation. COMPARISON: 10/18/2018 FINDINGS: IMAGED BRAIN: [Physiologic FDG uptake] NECK: [Physiologic FDG uptake] CHEST WALL: [Physiologic FDG uptake]. Stable right mastectomy changes with seroma formation measurin g 5.6 x 1.8 cm in axial plane. MEDIASTINUM: [Physiologic FDG uptake] LUNGS: [Physiologic FDG uptake]. Stable mild emphysematous changes. No pulmonary nodule or mass. HEPATOBILIARY: [Mean liver SUV appears relatively stable measuring 5.9 as opposed to 5.8 on the prev ious exam. Multiple hypodense liver masses have developed on the CT images measuring up to 3-4 cm in diameter. Most of the liver masses appear to be relatively isometabolic to liver. A few of the liver masses demonstrate mild hypermetabolic activity with max SUV measuring up to 7.0. PANCREAS: [Physiologic FDG uptake SPLEEN: [Physiologic FDG uptake] KIDNEYS/BLADDER: [Physiologic FDG uptake] ADRENAL GLANDS: [Physiologic FDG uptake] GI/MESENTERY: [Physiologic FDG uptake] PELVIC VISCERA: [Physiologic FDG uptake] LYMPH NODES: [Physiologic FDG uptake] OSSEOUS STRUCTURES: [A new solitary 1 cm lytic lesion is identified in the left side of T3 with max SUV measuring 3.6.] ADDITIONAL FINDINGS: [None] IMPRESSION: Progression of disease is demonstrated since 10/18/2018. Numerous hypodense liver masses have develop ed consistent with metastatic disease. A solitary 1 cm bone lesion is now identified in T3. Signer Name: Salvador Mejia Jr, MD Signed: 05/16/2019 12:05 PM Workstation Name: [id number]
== END 2019-05-16 08:12 | disposition home or self-care (01) ==
LOC: PET 08:11
PROVIDERS: ATTEND Internal Medicine Hematology & Oncology
DX: C50.411 Malignant neoplasm of upper-outer quadrant of right female breast (principal)
CPT/HCPCS: 78815; 82962; A9552

== ENCOUNTER 2019-08-29 10:24 | Outpatient (CLI) | payer MEDICARE ==
--- NOTE | 2019-08-29 14:46 | PET Report ---
PET/CT HISTORY: C50.411. Restaging of right breast cancer TECHNIQUE: The patient's fasting blood glucose was 109. The patient weighed 171 lbs. The patient w as injected with 14.33 mCi of FDG in the left antecubital fossa at 1132 hours and imaging was started at 1231 hours. The patient was imaged from the skull base to the thighs. [facility] CT [facility] are performed using CT dose reduction for ALARA by means of automated exposure control. Images we re reviewed on a workstation. COMPARISON: PET/CT dated 05/16/2019 FINDINGS: IMAGED BRAIN: Physiologic FDG uptake. NECK: Physiologic FDG uptake. CHEST WALL: Physiologic FDG uptake. Stable right mastectomy changes. No recurrent chest wall mass or extrathoracic adenopathy. MEDIASTINUM: Physiologic FDG uptake. LUNGS: Physiologic FDG uptake. Mild subpleural scarring in the right upper lobe and mild underlying emphysematous changes are stable. No suspicious pulmonary lesion. HEPATOBILIARY: Numerous hypodense liver masses are again identified which appears slightly increased in size and number since the previous exam. For instance, a right hepatic lobe mass has increased fr om 1.7 cm to 2.7 cm in diameter. The PET images demonstrate marked increase in metabolic activity in the liver masses. A right hepatic lobe mass demonstrates a max SUV of 26.0. A left hepatic lobe mass demonstrates a max SUV of 20.3. On the previous exam the masses were either isometabolic or moderatel y hypermetabolic with max SUV measuring up to 7.0. PANCREAS: Physiologic FDG uptake. SPLEEN: Physiologic FDG uptake. KIDNEYS/BLADDER: Physiologic FDG uptake. ADRENAL GLANDS: Physiologic FDG uptake. GI/MESENTERY: Physiologic FDG uptake. PELVIC VISCERA: Physiologic FDG uptake. LYMPH NODES: Physiologic FDG uptake. OSSEOUS STRUCTURES: The previously described T3 lytic lesion is stable in size measuring 1.3 cm and demonstrates mild decrease max SUV from 3.6 to 3.1. No new bony lesions are appreciated.. ADDITIONAL FINDINGS: None. IMPRESSION: Progression of disease in the liver is demonstrated. Liver masses appear increased in size, number a nd metabolic activity since the previous exam. See above. Relatively stable T3 lytic lesion with slight interval decrease in metabolic activity. Signer Name: Salvador Mejia Jr, MD Signed: 08/29/2019 2:42 PM Workstation Name: [id number]
== END 2019-08-29 10:25 | disposition home or self-care (01) ==
LOC: PET 10:24
PROVIDERS: ATTEND Internal Medicine Hematology & Oncology
DX: C50.411 Malignant neoplasm of upper-outer quadrant of right female breast (principal); K76.89 Other specified diseases of liver
CPT/HCPCS: 78815; 82962; A9552

== ENCOUNTER 2020-02-04 10:16 | Outpatient (CLI) | payer MEDICARE ==
--- NOTE | 2020-02-04 12:02 | Ultrasound Report ---
EXAMINATION: Left Limited Breast Ultrasound, 02/04/2020 INDICATION: Abnormal screening mammogram COMPARISON: Screening mammogram 12/09/2019, left diagnostic mammogram 01/22/2020 FINDINGS: Targeted ultrasound evaluation was performed of the area of interest. No abnormalities are seen in the region of interest medially. IMPRESSION: No sonographic correlate for the vague density is noted. Follow up recommendation: As previously discussed, there is a question that this density possibly was present previously and does not seen as well due to the very far posterior position. This was only s een on CC projections on any of the recent imaging despite multiple attempts at lateral projections. As previously noted, recommendation is for follow-up left mammogram with attention to this area in 6 months. BIRADS: 3: Probably benign Signer Name: Estuardo Pierre MD Signed: 02/04/2020 11:58 AM Workstation Name: [id number]
== END 2020-02-04 10:17 | disposition home or self-care (01) ==
LOC: SPVWC 10:16
PROVIDERS: ATTEND Surgery
DX: R92.8 Other abnormal and inconclusive findings on diagnostic imaging of breast (principal)

== ENCOUNTER 2020-06-30 09:38 | Outpatient (CLI) | payer MEDICARE ==
[2020-06-30 11:36] LABS: Blood Urea Nitrogen 18 mg/dL (7-17)
--- NOTE | 2020-06-30 14:01 | Nuclear Medicine Report ---
NM bone scan whole body INDICATION / CLINICAL INFORMATION: RE-STAGING EVALUATION. Breast cancer. TECHNIQUE: Dose / Agent / Route 26.2 mCi technetium MDP, IV COMPARISON: 11/28/2019 FINDINGS: Mild degenerative changes, but no evidence of skeletal metastasis and no significant interval change. IMPRESSION: 1. Negative and unchanged. Signer Name: Gavino Truong MD Signed: 06/30/2020 1:56 PM Workstation Name: [id number]
--- NOTE | 2020-06-30 16:43 | Cat Scan Report ---
CT chest w con, CT abdomen pelvis w con INDICATION: COMPARE AT LAST LOCATION. TECHNIQUE: All CT scans at this location are performed using CT dose reduction for ALARA by means of automated e xposure control. COMPARISON: 11/28/2019 FINDINGS: CT chest: Postop change in the right breast and right axilla. No mediastinal, hilar or axillary adenopathy. Sli ght radiation change in the right lung anteriorly. No significant pulmonary or pleural lesions. CT ABDOMEN: Multiple liver metastases have increased in size and number. Spleen and pancreas are negative. Left u pper pole renal cyst, unchanged; kidneys and adrenals are otherwise negative. Abdominal aorta is norm al in size. No retroperitoneal adenopathy. Small, previously repaired ventral hernia again contains a short segment of small bowel, without obst ruction or other complication. CT PELVIS: Urinary bladder and distal ureters are negative. Uterus is absent. Degenerative change and possible metastatic disease in the T2 and T3. (However, these lesions were no nhypermetabolic on a PET scan of 02/27/2020.) IMPRESSION: 1. Definite worsening of metastatic liver disease. 2. Degenerative change versus minimal skeletal metastatic disease in the upper thoracic spine. (See a cari.) Signer Name: Gavino Truong MD Signed: 06/30/2020 4:39 PM Workstation Name: [id number]
== END 2020-06-30 09:39 | disposition home or self-care (01) ==
LOC: NM 09:38
PROVIDERS: ATTEND Internal Medicine Hematology & Oncology
DX: C50.411 Malignant neoplasm of upper-outer quadrant of right female breast (principal); C22.9 Malignant neoplasm of liver, not specified as primary or secondary; M47.819 Spondylosis without myelopathy or radiculopathy, site unspecified; Z90.710 Acquired absence of both cervix and uterus
CPT/HCPCS: 36415; 71260; 74177; 78306; 82565; 84520; A9503; Q9967

== ENCOUNTER 2020-07-21 10:35 | Outpatient (CLI) | payer MEDICARE ==
--- NOTE | 2020-07-21 12:02 | Mammography Report ---
DIGITAL DIAGNOSTIC MAMMOGRAM WITH CAD CONVENTIONAL, 07/21/2020 CLINICAL INFORMATION / INDICATION: No current problems, PERSONAL HX OF BREAST CA TECHNIQUE: Digital bilateral mammographic imaging was performed. This examination was interpreted with the benefit of Computer-aided Detection analysis. COMPARISON: Bilateral mammogram 12/09/2019, right mammogram 07/11/2019, right mammogram 01/21/2019, bilate ral mammogram 11/05/2018 FINDINGS: Breast Density: There are scattered areas of fibroglandular density. Right surgical changes are again seen. Right breast is not as well visualized today due to patient co ndition despite attempts. Previous density of concern on the left is no longer visible. IMPRESSION: No mammographic evidence of malignancy. Follow up recommendation: Routine yearly BI-RADS Category 2: Benign. A "normal" or negative report should not discourage follow up or biopsy of a clinically significant f inding. A written summary of these findings will be mailed to the patient. The patient will be entered into a mammography reporting system which will generate a reminder letter for the patient's next appointmen t at the appropriate interval. According to the [employer], yearly mammograms are recommended starting at age 40 and continuing as long as a woman is in good health. Breast MRI is recommended for women with an alvaro roximately 20-25% or greater lifetime risk of breast cancer, including women with a strong family his tory of breast or ovarian cancer and women who have been treated for Hodgkin's disease. Signer Name: Estuardo Pierre MD Signed: 07/21/2020 11:57 AM Workstation Name: [email or web address]
== END 2020-07-21 10:36 | disposition home or self-care (01) ==
LOC: SPVWC 10:35
PROVIDERS: ATTEND Surgery
DX: N64.89 Other specified disorders of breast (principal); Z85.3 Personal history of malignant neoplasm of breast
CPT/HCPCS: 77066

== ENCOUNTER 2020-09-15 09:41 | Outpatient (CLI) | payer MEDICARE ==
--- NOTE | 2020-09-15 12:12 | Ultrasound Report ---
ULTRASOUND BREAST RIGHT LIMITED, 09/15/2020 CLINICAL INFORMATION / INDICATION: MALIGNANT NEOPLASM OF UPPER OUTER QUAD OF RT BREAST. TECHNIQUE: Targeted ultrasound evaluation was performed of the area of interest. COMPARISON: 02/04/20. FINDINGS: Postsurgical scarring/seroma is noted at the 8:00 position. There is a 4.2 mm simple cyst at the 10:0 0 position 4 cm from the nipple. There are postbiopsy changes at the 10:00 position 8 cm from the nip ple with a clip present. No suspicious abnormality is seen. IMPRESSION: No sonographic evidence of malignancy. No routine sonographic follow-up is recommended. Follow up recommendation: Routine yearly BI-RADS Category 2: Benign. A normal or "negative" report should not preclude biopsy or follow-up of a clinically suspicious find ing. Signer Name: Tanner Doherty MD Signed: 09/15/2020 11:39 AM Workstation Name: [email or web address]
== END 2020-09-15 09:42 | disposition home or self-care (01) ==
LOC: SPVWC 09:41
PROVIDERS: ATTEND Surgery
DX: C50.411 Malignant neoplasm of upper-outer quadrant of right female breast (principal); N60.01 Solitary cyst of right breast